=== PATIENT | male | born 1965 | race Caucasian/White ===

== ENCOUNTER → 2016-08-09 | Outpatient (CLI) | payer OTHER, BC | END | disposition disaster alternative care site (69) | LOC: GRAD 09:20 | DX: M25.511 Pain in right shoulder (principal); M19.011 Primary osteoarthritis, right shoulder; M75.51 Bursitis of right shoulder; M75.81 Other shoulder lesions, right shoulder; S43.401A Unspecified sprain of right shoulder joint, initial encounter; X58.XXXD Exposure to other specified factors, subsequent encounter ==